=== PATIENT | female | born 1970 | race Caucasian/White ===

== ENCOUNTER 2019-02-13 06:27 | Inpatient (IN) | payer BC ==
[2019-02-13] MEDS ORDERED: Acetaminophen 500 MG Tab PO ONE (06:30)
[2019-02-13] MEDS ORDERED: Scopolamine 1.5 MG Transdermal Patch TOP SCH (06:30)
[2019-02-13] MEDS ORDERED: Gabapentin 300 MG Cap PO ONE (06:30)
[2019-02-13] MEDS ORDERED: cefOXitin 2 GM Vial ONE (06:36)
[2019-02-13] MEDS ORDERED: Propofol 200 MG/20 ML SDV ONE (07:09)
[2019-02-13] MEDS ORDERED: Rocuronium 50 MG/5 ML Vial ONE (07:09)
[2019-02-13] MEDS ORDERED: Neostigmine Methylsulfate 1 MG/ML 5 ML Syringe ONE (07:09)
[2019-02-13] MEDS ORDERED: Ondansetron 4 MG/2 ML SDV ONE (07:09)
[2019-02-13] MEDS ORDERED: Dexamethasone 4 MG/ML SDV ONE (07:09)
[2019-02-13] MEDS ORDERED: Succinylcholine 200 MG/10 ML MDV ONE (07:09)
[2019-02-13] MEDS ORDERED: Glycopyrrolate 0.2 MG/ML 5 ML MDV ONE (07:09)
[2019-02-13] MEDS ORDERED: Dextrose 5%-Lactated Ringers 1,000 ML IV SCH (07:30)
[2019-02-13] MEDS ORDERED: cefOXitin 2 GM in Sodium Chloride 0.9% 50 ML IV ONE (08:00)
[2019-02-13] MEDS ORDERED: Lidocaine 0.4%/D5W 2 GM/500 ML BAG IV SCH (08:15)
[2019-02-13] MEDS ORDERED: Ketamine 500 MG/5 ML MDV IV SCH (08:15)
[2019-02-13] MEDS ORDERED: Lidocaine 2% 100 MG/5 ML Syringe IVPUSH SCH (08:15)
[2019-02-13] MEDS ORDERED: Ketamine 50 MG in Sodium Chloride 0.9% 49.5 ML IV SCH (08:15)
[2019-02-13 09:28] LABS: HEMOGLOBIN A1C 5.6 % (4.5-6.2)
[2019-02-13] MEDS ORDERED: 50% Dextrose in Water 50 ML Syringe IVPUSH PRN (11:18)
[2019-02-13] MEDS ORDERED: Insulin Lispro 100 Unit/ML 3 ML KwikPen SUBCUT PRN (11:18)
[2019-02-13] MEDS ORDERED: Metoclopramide 10 MG/2 ML SDV IVPUSH PRN (11:18)
[2019-02-13] MEDS ORDERED: Labetalol 20 MG/4 ML Syringe IVPUSH PRN (11:18)
[2019-02-13] MEDS ORDERED: diphenhydrAMINE 50 MG/ML SDV IVPUSH PRN (11:18)
[2019-02-13] MEDS ORDERED: hydrOXYzine HCl 100 MG/2 ML SDV IM PRN (11:18)
[2019-02-13] MEDS ORDERED: HYDROmorphone 0.5 MG/0.5 ML Syringe IVPUSH PRN (11:18)
[2019-02-13] MEDS ORDERED: Glucagon,Human Recombinant 1 MG Vial IM PRN (11:18)
[2019-02-13] MEDS: Ondansetron 4 MG/2 ML SDV IVPUSH PRN ×2 (11:33→19:45)
[2019-02-13] MEDS: HYDROmorphone 1 MG/ML Syringe IV PRN ×3 (11:41→17:55)
[2019-02-13] MEDS: Acetaminophen 325 MG Tab PO SCH ×2 (13:27→19:39)
[2019-02-13] MEDS: Gabapentin 250 MG/5 ML Solution ML 470 ML Bottle PO SCH ×2 (13:27→21:21)
[2019-02-13] MEDS: cefOXitin 2 GM in Sodium Chloride 0.9% 50 ML IV SCH ×2 (13:32→19:45)
[2019-02-13] MEDS ORDERED: Pantoprazole 40 MG Vial IVPUSH SCH (14:00)
[2019-02-13] MEDS ORDERED: MVI, Adult with Vitamin K 10 ML, Thiamine 200 MG, Chromium/Copper/Mang/Selen/Zn 1 ML in... IV SCH ×4 (16:00)
[2019-02-13] MEDS: Dextrose 5%-Lactated Ringers 1,000 ML IV SCH ×2 (16:00→23:56)
[2019-02-13] MEDS: Heparin Sodium 5,000 Units/ML Vial SUBCUT SCH (16:45)
[2019-02-13] MEDS: traZODone 50 MG Tab PO SCH (21:22)
[2019-02-14] MEDS ORDERED: Iopamidol 612 MG/ML 50 ML SDV PO STA (02:49)
[2019-02-14] MEDS: Acetaminophen 325 MG Tab PO SCH ×4 (02:50→20:52)
[2019-02-14] MEDS: cefOXitin 2 GM in Sodium Chloride 0.9% 50 ML IV SCH ×3 (02:50→15:20)
[2019-02-14] MEDS: Ondansetron 4 MG/2 ML SDV IVPUSH PRN (02:59)
[2019-02-14] MEDS: Heparin Sodium 5,000 Units/ML Vial SUBCUT SCH ×2 (03:02→16:40)
--- NOTE | 2019-02-14 04:52 | CRLCR ---
Indication: Lonny-en-Y gastric bypass leak check. Technique: Abdomen 2 view Comparison: None Findings/Impression: Two submitted abdominal films. On the 1st film the patient is status post Lonny-en-Y with no dilated loops of bowel. A drain is present in the left upper quadrant with administered oral contrast extending into the proximal small bowel without gross extravasation. Second image shows continued transit to the proximal to mid small bowel without gross extravasation. Dictated by Sachin Wilhelm MD @ Feb 14 2019 4:50AM Signed by Dr. Sachin Wilhelm @ Feb 14 2019 4:52AM
[2019-02-14] MEDS: Dextrose 5%-Lactated Ringers 1,000 ML IV SCH (06:07)
[2019-02-14] MEDS ORDERED: Ondansetron 4 MG Tab.DIS PO PRN (07:23)
[2019-02-14] MEDS ORDERED: Dextrose 5%-Lactated Ringers 1,000 ML IV SCH (07:30)
[2019-02-14] MEDS: hydrOXYzine HCl 25 MG Tab PO PRN ×2 (08:46→23:31)
[2019-02-14] MEDS: Gabapentin 250 MG/5 ML Solution ML 470 ML Bottle PO SCH ×3 (08:51→20:57)
--- NOTE | 2019-02-14 08:53 | PN ---
DATE OF SERVICE: 02/14/2019 SUBJECTIVE: Sanna is postop day 1 following a Lonny-en-Y gastric bypass surgery. Her upper GI was normal. She did have some nausea during the night. REVIEW OF SYSTEMS: Remainder of review of systems negative for any pertinent positives and negatives. OBJECTIVE: GENERAL: Sanna is a pleasant 48-year-old female. She is alert and orientated. VITAL SIGNS: TPR; 97.4, 57, 16. Blood pressure 134/75. HEENT: Negative. NECK: Supple. HEART: Regular rate and rhythm. LUNGS: Clear. ABDOMEN: Dressings dry and intact. Abdominal binder is on. LEONIDAS drain put out 165 mL of a light pink drainage. EXTREMITIES: Without peripheral edema. ASSESSMENT: Laparoscopic Lonny-en-Y gastric bypass surgery, liver biopsy, and repair of diaphragmatic hernia, for morbid obesity, hepatomegaly, and diaphragmatic hernia. Date of surgery, 02/13/2019. Surgeon, Moose Quinonez M.D. PLAN: 1. Discontinue Accu-Cheks. 2. Vistaril 25 mg q.4 hours p.r.n. pain. 3. Dressing off, may shower. 4. Decrease IV D5LR to 100 mL per hour. 5. Step-2 gastric bypass diet with no cereal. 6. Communication order, 3 med cups per hour or 1 every 20 minutes, record at bedside. 7. Zofran 4 mg ODT every 4 hours p.r.n. nausea. 8. Good pulmonary toilet. 9. We will evaluate p.r.n. or in a.m. Diamante Rosa PA-C /[id number]
[2019-02-14] MEDS: Lisinopril 10 MG Tab PO SCH (08:54)
[2019-02-14] MEDS: SCOPOLAMINE PATCH CHECK TOP SCH (08:56)
[2019-02-14] MEDS ORDERED: Pantoprazole 40 MG Delayed-Release Granules 1 Packet PO SCH (16:30)
[2019-02-14] MEDS: traZODone 50 MG Tab PO SCH (20:53)
[2019-02-15] MEDS: Acetaminophen 325 MG Tab PO SCH ×2 (02:03→07:17)
[2019-02-15] MEDS: Heparin Sodium 5,000 Units/ML Vial SUBCUT SCH (04:48)
[2019-02-15] MEDS ORDERED: Cyanocobalamin (Vitamin B12) 1,000 MCG/ML SDV IM ONE (09:00)
[2019-02-15] MEDS: Gabapentin 250 MG/5 ML Solution ML 470 ML Bottle PO SCH (09:18)
[2019-02-15] MEDS: SCOPOLAMINE PATCH CHECK TOP SCH (09:19)
[2019-02-15] MEDS: Lisinopril 10 MG Tab PO SCH (09:19)
--- NOTE | 2019-02-15 13:51 | OR ---
DATE OF PROCEDURE: 02/13/2019 SURGEON: Moose Quinonez MD PREOPERATIVE DIAGNOSIS: Morbid obesity. POSTOPERATIVE DIAGNOSES: 1. Morbid obesity. 2. Marked hepatomegaly. 3. Paraesophageal diaphragmatic hernia. OPERATIVE PROCEDURES: 1. Laparoscopic Lonny-en-Y gastric bypass with long-limb gastroenterostomy (27500). 2. Travis-Cut needle liver biopsy (54123). 3. Repair of paraesophageal diaphragmatic hernia (98793). ANESTHESIA: General. BRUSH CLEARING LABORER: Diamante Rosa PA-C. INDICATIONS FOR PROCEDURE: This is a 48-year-old female, presenting with longstanding morbid obesity and increasingly significant comorbidities. After preoperative evaluation and discussion, she wished to proceed with a gastric bypass procedure. Potential risks including bleeding, infection, injury to the underlying viscera, problems with leaks from GI tract closures, and bowel obstruction over time, along with the remote possibility of cardiopulmonary, septic, or hemorrhagic complications leading to were discussed, and the patient wishes to proceed. DETAILS OF PROCEDURE: The patient was taken to the operating room and placed in a supine position. After general endotracheal anesthesia was induced, the patient was converted to a lithotomy position, and the abdomen prepped and draped. At 15 cm inferior and 5 cm left of the xiphoid process, a transverse incision was made, and the peritoneal cavity entered under direct vision with an Optiview trocar, inflated to 15 mmHg pressure of CO2. Laparoscope was reinserted and no underlying trocar insertion site injuries were seen. Following this, 5 additional trocars were placed across the upper and mid abdomen. Bilateral transversus abdominis plane blocks were placed. The liver was noted to be markedly enlarged and fatty infiltrated, and Travis-Cut needle biopsies were obtained from the left lobe of the liver. Minimal bleeding from the biopsy site was controlled with electrocautery. The omentum was then divided in the midline, up to the level of the transverse colon. This allowed identification of the small bowel to ligament of Treitz. Small bowel was then traced out 150 cm distal to that point, where it was divided with a KWAKU stapler. Small bowel was then traced out additional 150 cm, where the [id number] enteroenterostomy was accomplished with internal firing of the Endo-KWAKU 60 mm stapler. Common opening closed transversely with the same stapler. Angles of anastomosis and mesenteric defect approximated with some 0 Ethibond stitch, along with 4 mL of fibrin sealant. The divided end of the Lonny limb was then from the mesentery for a few centimeters, which allowed an antecolic position of the Lonny limb up to the level of the gastroesophageal junction without tension. The liver was then retracted anteriorly. The patient was noted to have a paraesophageal diaphragmatic hernia with prolapse of some perigastric fat and some omentum along the course of the esophagus. This was reduced and peritoneum incised and reflected downward. An anterior repair of the diaphragmatic hernia was accomplished with some 0 Ethibond sutures reinforced with PTFE pledgets. The gastrointestinal balloon catheter was then inflated to 15 mL and pulled up snugly against the EG junction. The gastric wall over the apex of balloon was then marked with electrocautery and balloon catheter deflated and withdrawn. The lesser omental tissue adjacent to the gastric cardia was incised allowing dissection behind the stomach at that level. Pouch formation was initiated with transverse firing of the KWAKU stapler at the level of the cauterized derek in the gastric cardia. Pouch was then completed with additional firings of the KWAKU stapler up to and through the angle of His. Upon completion of the pouch, both staple lines were noted to be intact. The anvil of a 25-mm EEA stapler was attached to [place] sump type tube. The latter was brought down through the mouth and taken out a small opening in the gastric pouch, allowing the anvil likewise to be pulled down to within the gastric pouch. The divided end of the Lonny limb was then opened and main body of the EEA stapler passed several centimeters into the lumen of the small bowel, brought up the anvil and united with it, thus creating the gastrojejunostomy. Upon removal of the stapler, double donuts of mucosa were noted within it. Small bowel was closed off with a vascular staple line. Gastrojejunostomy was then reinforced with some 3-0 Vicryl seromuscular stitch, along with fibrin sealant. A leak test was accomplished with injection of 120 mL of air in the gastric pouch while it was submerged within cefoxitin-containing saline solution. No leaks were identified. Single Eran- Goldsmith drain was then taken out through the left lateral trocar site and positioned adjacent to the gastrojejunostomy and from there up into the splenic fossa. The trocars were then removed. The peritoneal cavity was deflated. The incisions were closed with some 4-0 Vicryl skin stitch, which was also used to affix the drain. The patient was taken to the recovery room in satisfactory condition. Physician driller's assistant, Diamante Rosa, played an essential role in assisting in this case, helping to position the patient, retract structures as needed, as well as suturing and cutting sutures when indicated. Her presence improved patient safety and decreased the operative time. Moose Quinonez MD /[id number]
--- NOTE | 2019-02-16 07:46 | DISCH ---
ADMISSION DIAGNOSES: 1. Morbid obesity. 2. Body mass index 44. 3. Hypertension. 4. Chronic obstructive pulmonary disease. 5. Obstructive sleep apnea. 6. Mixed hyperlipidemia. 7. Hyperinsulinism. 8. Insomnia. DISCHARGE DIAGNOSES: Laparoscopic Lonny-en-Y gastric bypass surgery, liver biopsy, and repair of diaphragmatic hernia, for morbid obesity, hepatomegaly, and diaphragmatic hernia. Date of surgery, 02/13/2019. Surgeon, Moose Quinonez M.D. HISTORY: Sanna Garcia is a 48-year-old female with longstanding history of morbid obesity and increasing comorbidities. After preoperative evaluation and discussion of possible risks and possible complications, she wished to proceed with surgical procedure. HOSPITAL COURSE: Sanna had her surgery on 02/13/2019. She had no operative complications. On postoperative day #1, she was started on a step 2 gastric bypass diet without cereal. Vital signs remained stable. Her oral intake was 1532. Urine output 2460. She received dietary instruction and vitamin B12 1000 mcg IM injection. She was able to be discharged to home on postoperative day #2 without any complications. PHYSICAL EXAMINATION: GENERAL: Sanna Garcia is a 48-year-old female. VITAL SIGNS: Height is 5 feet 6.5 inches, weight is 282 pounds, BMI 44.8. TPR 96.3, 80, 16, blood pressure 125/60. HEENT: Negative. NECK: Supple. HEART: Regular rate and rhythm. LUNGS: Clear. ABDOMEN: Incisions look good. 4x4s over LEONIDAS drain site. Abdominal binder is on. EXTREMITIES: Without peripheral edema. DISPOSITION: Discharged to home. CONDITION: Stable and improving. FOLLOWUP: Followup appointment with Diamante Rosa PA-C, on 02/21/2019, at 10:30 a.m. at [place], [place]. HOME MEDICATIONS: 1. Hydroxyzine 25 mg p.o. q.4 hours p.r.n. pain, #40. 2. Zofran ODT 4 mg every 4 hours p.r.n. nausea, #30. 3. Milk of magnesia 30 mL, two were sent home with the patient to take one today and one tomorrow as needed for constipation. She is to continue with; 1. Tylenol 1000 mg q.6 hours. 2. Prinivil 10 mg p.o. daily. 3. Melatonin 3 mg at bedtime. DIET: Step 2 gastric bypass diet with no cereal for 2 weeks until 02/27/2019. Drink 8 to 10 glasses of water a day and have 65 g of protein. ACTIVITY: Other activity: No lifting greater than 10 pounds for 2 weeks. Walk at least 6 times daily, distance and time as tolerated. Driving: Do not drive for 1 week. Shower/bathing: May shower. Keep operative site clean and dry. DISCHARGE INSTRUCTIONS: Wear abdominal binder for 2 weeks and then as tolerated. Notify provider if any fever, increased pain, nausea, or vomiting. SPECIAL INSTRUCTIONS: Use incentive spirometer 10 times every hour while awake for 1 week and keep track of protein intake and bring to clinic appointments.
== END 2019-02-15 11:30 | disposition home or self-care (01) | DRG 403 ==
LOC: JP.SDS 06:27 → JP.SDSSCHI 06:27 → JP.MS 10:10 → EDSTATUS 12:00
PROVIDERS: ADMIT Surgery; ATTEND Surgery
PROC: 0D164ZA Bypass Stomach to Jejunum, Percutaneous Endoscopic Approach (ICD-10-PCS; principal; 2019-02-13)
PROC: 0FB24ZX Excision of Left Lobe Liver, Percutaneous Endoscopic Approach, Diagnostic (ICD-10-PCS; 2019-02-13)
PROC: 0BQT4ZZ Repair Diaphragm, Percutaneous Endoscopic Approach (ICD-10-PCS; 2019-02-13)
DX: E66.01 Morbid (severe) obesity due to excess calories (principal); Z68.41 Body mass index [BMI] 40.0-44.9, adult; I10 Essential (primary) hypertension; J44.9 Chronic obstructive pulmonary disease, unspecified; G47.33 Obstructive sleep apnea (adult) (pediatric); E78.2 Mixed hyperlipidemia; E16.1 Other hypoglycemia; G47.00 Insomnia, unspecified; R16.0 Hepatomegaly, not elsewhere classified; K44.9 Diaphragmatic hernia without obstruction or gangrene; Z88.1 Allergy status to other antibiotic agents
CPT/HCPCS: 36415; 74240; 80053; 81001; 81025; 82962; 83036; 83735; 84100; 86850; 86900; 86901; 88307; 88313; A9270-GY; C9113; J0171; J0330; J0694; J1100; J1170; J1644; J1815; J2001; J2405; J2704; J2710; J2765; J2795; J3010; J3411; J3420; J3490; J7042; J7050; Q9967